=== PATIENT | female | born 2000 | race American Indian/Alaskan Native ===

== ENCOUNTER 2024-08-03 20:11 | Emergency (ER) | payer OTHER ==
[~2024-08-03] VITALS: Ht 157.5 cm; Wt 139.7 kg
[~2024-08-03 20:11] MED LIST: DOCUSATE SODIU100 MG PO; HYDROCODONE-CH473 ML PO; MOUTH CLEANSER15 ML MM; ONDANSETRON HCL8 MG PO; OXYCODONE HCL5 MG PO
[2024-08-03] MEDS ORDERED: ondansetron HCL 4 MG/2 ML VIAL IV ONE (20:30)
[2024-08-03] MEDS ORDERED: SODIUM CHLORIDE 0.9% 500 ML IV PRN (20:30)
[2024-08-03 21:20] LABS: HEMOGLOBIN 12.3 g/dL (12.0-18.0)
[2024-08-03 21:27] LABS: BASOPHILS 0.1 % (0-2); EOSINOPHILS 0.2 % (0-6); HEMATOCRIT 38.7 % (35.0-50.0); MCH 25.6 (27-36); MCHC 31.8 g/dl (30-36); MCV 80.4 fl (81-99); MONOCYTES 4.4 % (0-12); NEUTROPHILS 86.3 % (39-80); PLATELET COUNT 348 K/uL (140-440); RBC 4.81 M/ul (4.3-5.7); RDW 14.4 (10.5-15.0)
[2024-08-03 21:35] LABS: ALBUMIN 3.2 g/dL (3.4-5.0); ALBUMIN/GLOBULIN RATIO 0.84 (1.1-2.4); ANION GAP 13.9 (7-21); BILIRUBIN, TOTAL 0.2 ng/dL (0.2-1.0); BUN/CREATININE RATIO 16.25 (6.0-28.6); CALCIUM 8.8 mg/dL (8.5-10.1); CREATININE, SERUM 0.8 mg/dL (0.55-1.02); MAGNESIUM 1.8 mg/dL (1.8-2.4); POTASSIUM 3.9 mmol/L (3.5-5.1)
[2024-08-03] MEDS ORDERED: ONDANSETRON 4 MG HOME.PACK SL ONE (22:15)
[2024-08-03] MEDS ORDERED: droPERidol 5 MG/2 ML VIAL IV ONE (22:45)
[2024-08-03 23:00] VITALS: BP 109/66
== END 2024-08-03 23:00 | disposition home or self-care (01) ==
LOC: ED 20:11
PROVIDERS: Family Medicine
DX: R11.2 Nausea with vomiting, unspecified (principal); T40.715A Adverse effect of cannabis, initial encounter
CPT/HCPCS: 36415; 80053; 83735; 85025; 96374; 96375; 99284-25; A9270; J1790; J2405; J7040